=== PATIENT | female | born 1995 | race African-American/Black ===

== ENCOUNTER 2019-07-28 14:06 | Emergency (ER) | payer OTHER ==
[~2019-07-28] VITALS: Ht 160 cm; Wt 61.2 kg
[2019-07-28 14:10] VITALS: BP 99/63
--- NOTE | 2019-07-28 14:11 | NUR ---
PT WAS TAKEN TO BED 06
--- NOTE | 2019-07-28 14:25 | NUR ---
24 Y/O F BIBA. PT FAINTED AT WORK. PT DENIES INJURY WHEN SHE FELL AFTER FAINTING. PT HAS NOT BEEN SICK RECENTLY AND HAS NOT FAINTED PRIOR TO TODAY. PT NEUROLOGICAL EXAM IS NORMAL, PUPILS PERRLA, HAND COAT JOINER LOCKSTITCH EQUAL BILATERALY. PT POSITIONED FOR COMFORT, BED RAIL X2 IN PLACE. PT STATES SHE DOES NOT HAVE PAIN. [facility] MED HX: NONE
[2019-07-28 15:39] VITALS: BP 99/63
--- NOTE | 2019-07-28 15:39 | NUR ---
Patient discharged with v/s stable. Written and verbal after care instructions given and explained. Patient verbalized understanding. Ambulatory with steady gait. All questions addressed prior to discharge. Advised to follow up with PMD.
== END 2019-07-28 15:39 | disposition home or self-care (01) ==
LOC: MED 14:06
DX: R55 Syncope and collapse (principal)
CPT/HCPCS: 81002; 81025; 93005; 99283